=== PATIENT | female | born 1950 | race Caucasian/White ===

== ENCOUNTER 2017-02-07 00:31 | Emergency (ER) | payer SELFPAY ==
[~2017-02-07] VITALS: Ht 167.6 cm; Wt 89.0 kg
[2017-02-07] MEDS ORDERED: HYDROCODONE/ACETAMINOPHEN 5/325MG TABLET PO ONE (03:00)
[2017-02-07 03:07] LABS: GLUCOSE URINE NEGATIVE (NEGATIVE); KETONES URINE NEGATIVE (NEGATIVE); LEUKOCYTE ESTERASE URINE NEGATIVE (NEGATIVE); NITRITE URINE NEGATIVE (NEGATIVE); OCCULT BLOOD URINE NEGATIVE (NEGATIVE); PROTEIN URINE NEGATIVE (NEGATIVE); SPECIFIC GRAVITY URINE 1.028 (1.005-1.030)
[2017-02-07 03:10] LABS: CLARITY URINE CLEAR (CLEAR); COLOR URINE YELLOW (YELLOW)
[2017-02-07 03:19] LABS: BASOPHILS % 0.9 % (0.0-2.0); EOSINOPHILS % 1.3 % (0.0-5.0); HEMATOCRIT. 39.8 % (36.0-48.0); HEMOGLOBIN. 13.5 g/dL (12.0-16.0); LYMPHOCYTES % 18.6 % (20.0-50.0); MEAN CORPUSCULAR HEMOGLOBIN 29.9 pg (28.0-32.0); MONOCYTES % 5.7 % (2.0-8.0); NEUTROPHILS % 73.5 % (40.0-76.0); PLATELET 189 x1000/uL (130-400); RED BLOOD CELL COUNT 4.52 mill/uL (4.2-5.4); RED CELL DISTRIBUTION WIDTH 14.4 % (11.6-14.6)
[2017-02-07 03:24] LABS: PROTHROMBIN TIME 10.3 sec (9.4-11.6)
[2017-02-07 03:31] LABS: CARBON DIOXIDE 27 mEq/L (21-32); CHLORIDE 107 mEq/L (98-107)
[2017-02-07] MEDS ORDERED: ONDANSETRON 4MG ODT PO NR (04:45)
[2017-02-07] MEDS ORDERED: KETOROLAC 30MG/ML VIAL IM NR (04:45)
[2017-02-07 06:15] VITALS: BP 155/71
== END 2017-02-07 06:20 | disposition home or self-care (01) ==
LOC: ER 00:31
DX: S76.912A Strain of unspecified muscles, fascia and tendons at thigh level, left thigh, initial encounter (principal); X50.3XXA Overexertion from repetitive movements, initial encounter; Y93.89 Activity, other specified; Y92.89 Other specified places as the place of occurrence of the external cause
CPT/HCPCS: 36415; 80053; 81003; 85025; 85610; 93971; 96372; 99285; J1885; Q0162; Z7610

== ENCOUNTER 2021-03-27 15:52 | Inpatient (IN) | payer MEDICAID, OTHER ==
[~2021-03-27] VITALS: Ht 165.1 cm; Wt 83.5 kg
[2021-03-27] MEDS ORDERED: MORPHINE SULFATE 4 MG/ML CPJ (NOT FOR IM USE) IV ONE (18:00)
[2021-03-27 19:02] LABS: BASOPHILS % 0.3 % (0.0-2.0); EOSINOPHILS % 1.2 % (0.0-5.0); HEMATOCRIT. 38.7 % (36.0-48.0); HEMOGLOBIN. 12.7 g/dL (12.0-16.0); LYMPHOCYTES % 31.7 % (20.0-50.0); MEAN CORPUSCULAR HEMOGLOBIN 29.4 pg (28.0-32.0); MEAN CORPUSCULAR VOLUME 89.5 fL (81.0-99.0); MONOCYTES % 5.6 % (2.0-8.0); NEUTROPHILS % 61.2 % (40.0-76.0); PLATELET 222 x1000/uL (130-400); RED BLOOD CELL COUNT 4.32 mill/uL (4.2-5.4); RED CELL DISTRIBUTION WIDTH 13.9 % (11.6-14.6)
[2021-03-27 19:08] LABS: CHLORIDE 110 mEq/L (98-107)
[2021-03-27 19:21] LABS: B-HCG QUANTITATIVE 2 mIU/mL (<3)
[2021-03-27 20:46] LABS: HEMATOCRIT 34.5 % (36.0-48.0); HEMOGLOBIN 11.7 g/dL (12.0-16.0); MEAN CORPUSCULAR HEMOGLOBIN 29.7 pg (28.0-32.0); MEAN CORPUSCULAR VOLUME 87.6 fL (81.0-99.0); PLATELET 210 x1000/uL (130-400); RED BLOOD CELL COUNT 3.93 mill/uL (4.2-5.4); RED CELL DISTRIBUTION WIDTH 13.7 % (11.6-14.6)
[2021-03-28 00:10] VITALS: BP 165/80
[2021-03-28] MEDS ORDERED: IBUP-2741 PO (01:46)
[2021-03-28] MEDS ORDERED: ONDANSETRON HCL 4MG/2ML INJ IV PRN ×2 (02:15→09:15)
[2021-03-28] MEDS ORDERED: NALOXONE HCL 0.4MG/ML VIAL IV PRN (02:15)
[2021-03-28] MEDS: LACTATED RINGERS 1,000 ML IV SCH ×2 (04:18→10:15)
[2021-03-28 04:25] VITALS: BP 178/71
[2021-03-28] MEDS: MORPHINE SULFATE 2 MG/ML CPJ (NOT FOR IM USE) IV PRN ×2 (04:26→13:14)
[2021-03-28] MEDS ORDERED: PROPOFOL 200MG/20ML VIAL IV ONE (08:11)
[2021-03-28] MEDS ORDERED: FENTANYL CITRATE/PF 50MCG/ML 2ML VIAL ONE (08:23)
[2021-03-28] MEDS ORDERED: MIDAZOLAM HCL 2 MG/2 ML VIAL ONE (08:28)
[2021-03-28] MEDS ORDERED: KETOROLAC 30MG/ML VIAL ONE (08:47)
[2021-03-28] MEDS ORDERED: DEXAMETHASONE 4MG/ML 1ML VIAL ONE (08:47)
[2021-03-28] MEDS ORDERED: METOCLOPRAMIDE HCL 10MG/2ML VIAL ONE (08:47)
[2021-03-28] MEDS ORDERED: ONDANSETRON HCL 4MG/2ML INJ ONE (08:47)
[2021-03-28] MEDS ORDERED: CEFAZOLIN SODIUM 1000MG/VIAL ONE (08:47)
[2021-03-28] MEDS ORDERED: LIDOCAINE HCL/PF 1% 10 MG/ML 5ML VIAL ONE (08:47)
[2021-03-28] MEDS ORDERED: MEPERIDINE HCL/PF 25MG/ML CPJ IV PRN (09:15)
[2021-03-28] MEDS ORDERED: HYDROMORPHONE HCL/PF 2MG/ML CPJ IV PRN (09:15)
[2021-03-28 11:18] VITALS: BP 127/96
[2021-03-28 12:00] VITALS: BP 147/53
[2021-03-28 13:14] VITALS: BP 127/96
[2021-03-28 15:46] LABS: HEMATOCRIT. 32.3 % (36.0-48.0); HEMOGLOBIN. 10.8 g/dL (12.0-16.0); MEAN CORPUSCULAR HEMOGLOBIN 29.7 pg (28.0-32.0); MEAN PLATELET VOLUME 10.6 fl (7.4-10.4); PLATELET 199 x1000/uL (130-400); RED BLOOD CELL COUNT 3.62 mill/uL (4.2-5.4); RED CELL DISTRIBUTION WIDTH 13.8 % (11.6-14.6)
[2021-03-28 22:41] LABS: PLATELET ESTIMATE NORMAL
== END 2021-03-28 17:24 | disposition home or self-care (01) | DRG 517 ==
LOC: ER 15:52 → 6WST 20:19 → ENRESERV 22:46 → EDBEDREQ 23:01
PROVIDERS: ADMIT Obstetrics & Gynecology; ATTEND Obstetrics & Gynecology
PROC: 0UDB7ZZ Extraction of Endometrium, Via Natural or Artificial Opening (ICD-10-PCS; principal; 2021-03-28)
DX: C54.1 Malignant neoplasm of endometrium (principal); N85.2 Hypertrophy of uterus; Z20.822 Contact with and (suspected) exposure to COVID-19; Z79.899 Other long term (current) drug therapy
CPT/HCPCS: 36415; 76830; 76856; 80053; 84702; 85025; 85027; 86850; 86900; 87426; 88305; 88331; 93005; 99285; J0690; J1100; J1885; J2250; J2270; J2405; J2704; J2765; J3010; J3490; J7120